=== PATIENT | female | born 1990 | race African-American/Black ===

== ENCOUNTER 2018-07-21 13:22 | Emergency (ER) | payer OTHER | END 2018-07-21 15:53 | disposition home or self-care (01) | LOC: JER 13:22 → JERFT 15:53 ==

== ENCOUNTER 2020-05-15 10:05 | Emergency (ER) | payer OTHER ==
[2020-05-15 10:13] VITALS: BMI 33.5
[2020-05-15] MEDS ORDERED: MAG HYDROX/AL HYDROX/SIMETH 30 ML UNIT-DOSE CUP PO ONE (10:51)
[2020-05-15] MEDS ORDERED: ONDANSETRON *ODT* 4 MG TABLET SL ONE (10:52)
[2020-05-15] MEDS ORDERED: FAMOTIDINE 10 MG TABLET PO ONE (10:52)
[2020-05-15] MEDS ORDERED: FAMOTIDINE 20 MG TABLET ONE (11:26)
[2020-05-15] MEDS ORDERED: ONDANSETRON *ODT* 4 MG TABLET ONE (11:27)
[2020-05-15] MEDS ORDERED: MAG HYDROX/AL HYDROX/SIMETH 30 ML UNIT-DOSE CUP ONE (11:27)
[2020-05-15 12:43] LABS: EPI CELLS 35 /uL (0-25.1); HYALINE CASTS 8 /uL (0-3.1); PH,URINE 5.5 (5.0-8.0); URINE APPEARANCE CLOUDY; URINE BACTERIA 1495 /uL (0-1359); URINE BILIRUBIN NEGATIVE (NEGATIVE); URINE COLOR YELLOW; URINE GLUCOSE (UA) NEGATIVE (NEGATIVE); URINE KETONE 4+ (NEGATIVE); URINE LEUK ESTERASE NEGATIVE (NEGATIVE); URINE NITRITE NEGATIVE (NEGATIVE); URINE PROTEIN 1+ (NEGATIVE)
[2020-05-15 13:28] LABS: URINE RBC 39 /uL (0-23.9); URINE WBC 65 /uL (0-25.8)
[2020-05-15] MEDS ORDERED: PANTOPRAZOLE SOD 40 MG SUSPENSION PACKET PO ONE (13:28)
[2020-05-15] MEDS ORDERED: PANTOPRAZOLE 40 MG TABLET PO ONE (13:39)
[2020-05-15] MEDS ORDERED: PANTOPRAZOLE 40 MG TABLET ONE (13:42)
[2020-05-15 14:02] VITALS: BP 143/83; PULSE 77; TEMP 97.9
== END 2020-05-15 14:03 | disposition home or self-care (01) ==
LOC: JER 10:05
DX: K29.00 Acute gastritis without bleeding (principal)
CPT/HCPCS: 36415; 81003; 82962; 84702; 87086; 99283-25; Q0162

== ENCOUNTER 2021-06-04 11:11 | Day surgery (SDC) | payer OTHER ==
[2021-06-04] MEDS ORDERED: FERRIC CARBOXYMALTOSE 750 MG in SODIUM CHLORIDE 250 ML IVPB ONE (12:15)
[2021-06-04 13:32] VITALS: BP 127/82; PULSE 60; TEMP 98.9
== END 2021-06-04 13:35 | disposition home or self-care (01) ==
LOC: FINFUSION 11:11 → FM/S 11:12 → FINFUSION 13:35
PROVIDERS: ATTEND Family Medicine
PROC: 3E033GC Introduction of Other Therapeutic Substance into Peripheral Vein, Percutaneous Approach (ICD-10-PCS; principal; 2021-06-04)
DX: D50.9 Iron deficiency anemia, unspecified (principal)
CPT/HCPCS: 81025; 96365; J1439

== ENCOUNTER 2021-06-06 10:00 | Emergency (ER) | payer OTHER ==
[2021-06-06 10:09] VITALS: BP 128/89; PULSE 80; TEMP 97.9; BMI 36.2
== END 2021-06-06 11:24 | disposition home or self-care (01) ==
LOC: JERFT 10:00
DX: M25.561 Pain in right knee (principal)
CPT/HCPCS: 73562-TC-RT-FY; 99283-25

== ENCOUNTER 2021-06-12 11:16 | Day surgery (SDC) | payer OTHER ==
[2021-06-12] MEDS ORDERED: FERRIC CARBOXYMALTOSE 750 MG in SODIUM CHLORIDE 250 ML IVPB ONE (12:00)
[2021-06-12 13:21] VITALS: BP 125/83; PULSE 63; TEMP 98.1
== END 2021-06-12 13:22 | disposition home or self-care (01) ==
LOC: FINFUSION 11:16 → FM/S 11:17 → FINFUSION 13:22
PROVIDERS: ATTEND Family Medicine
PROC: 3E033GC Introduction of Other Therapeutic Substance into Peripheral Vein, Percutaneous Approach (ICD-10-PCS; principal; 2021-06-12)
DX: D50.9 Iron deficiency anemia, unspecified (principal)
CPT/HCPCS: 81025; 96365; J1439

== ENCOUNTER 2021-06-20 14:14 | Emergency (ER) | payer OTHER ==
[2021-06-20 14:35] VITALS: BP 127/84; PULSE 75; TEMP 98.1; BMI 35.1
[2021-06-20 16:24] LABS: HCG,QUALITATIVE URINE Negative
[2021-06-20 16:39] LABS: EPI CELLS 16 /uL (0-25.1); HYALINE CASTS 28 /uL (0-3.1); PH,URINE 5.5 (5.0-8.0); URINE APPEARANCE CLOUDY; URINE BACTERIA 415 /uL (0-1359); URINE BILIRUBIN NEGATIVE (NEGATIVE); URINE COLOR YELLOW; URINE GLUCOSE (UA) NEGATIVE (NEGATIVE); URINE KETONE TRACE (NEGATIVE); URINE LEUK ESTERASE 2+ (NEGATIVE); URINE NITRITE NEGATIVE (NEGATIVE); URINE PROTEIN 1+ (NEGATIVE); URINE RBC 449 /uL (0-23.9); URINE UROBILINOGEN 0.2 mg/dL (0.2-1.0); URINE WBC 930 /uL (0-25.8)
== END 2021-06-20 17:15 | disposition home or self-care (01) ==
LOC: JERFT 14:14
DX: N30.01 Acute cystitis with hematuria (principal)
CPT/HCPCS: 81003; 84703; 87086; 87186; 99283-25

== ENCOUNTER 2022-08-06 18:45 | Emergency (ER) | payer OTHER ==
[2022-08-06 18:53] VITALS: BP 147/93; PULSE 88; RESP 18; TEMP 98.4; BMI 38.9
[2022-08-06 20:12] LABS: BASO % 0.3 % (0-2.0); EOS % 0.4 % (0-4.5); HEMATOCRIT 45.2 % (32.4-45.2); HEMOGLOBIN 14.8 GM/dL (10.7-15.3); LYMPH % 21.2 % (8-40); MCH 28.3 pg (25.7-33.7); MCHC 32.8 g/dl (32.0-36.0); MEAN CELL VOLUME 86.2 fl (80-96); MEAN PLT VOLUME 9.7 fl (7.5-11.1); MONO % 6.9 % (3.8-10.2); NEUT % 71.2 % (42.8-82.8); PLATELET COUNT 296 10^3/uL (134-434); RBC 5.24 M/mm3 (3.60-5.2); RDW 13.2 % (11.6-15.6); WHITE BLOOD COUNT 9.3 K/mm3 (4.0-10.0)
[2022-08-06] MEDS ORDERED: METOCLOPRAMIDE HCL INJECTION 10 MG/2 ML VIAL IVPB ONE (20:13)
[2022-08-06] MEDS ORDERED: ACETAMINOPHEN 1000 MG/100 ML BAG IVPB ONE (20:14)
[2022-08-06] MEDS ORDERED: SODIUM CHLORIDE 0.9% 500 ML INFUS.BAG IV ONE (20:14)
[2022-08-06 20:21] LABS: POTASSIUM 3.9 mmol/L (3.5-5.1)
[2022-08-06 20:23] LABS: ALBUMIN 3.8 g/dl (3.4-5.0); BLOOD UREA NITROGEN 8.2 mg/dL (7-18)
[2022-08-06 20:26] LABS: CREATININE 0.8 mg/dL (0.55-1.3)
[2022-08-06 20:28] LABS: BILIRUBIN,TOTAL 0.5 mg/dL (0.2-1); TOT PROT 8.2 g/dl (6.4-8.2)
[2022-08-06] MEDS ORDERED: ACETAMINOPHEN INJECTION 100 ML IVPB ONE ×2 (20:28→20:37)
[2022-08-06] MEDS ORDERED: METOCLOPRAMIDE HCL INJECTION 10 MG/2 ML VIAL ONE (20:36)
[2022-08-06 22:43] LABS: EPI CELLS 23 /uL (0-25.1); HYALINE CASTS 4 /uL (0-3.1); PH,URINE 5.5 (5.0-8.0); URINE APPEARANCE CLEAR; URINE BACTERIA 581 /uL (0-1359); URINE BILIRUBIN NEGATIVE (NEGATIVE); URINE COLOR YELLOW; URINE GLUCOSE (UA) NEGATIVE (NEGATIVE); URINE KETONE 4+ (NEGATIVE); URINE LEUK ESTERASE NEGATIVE (NEGATIVE); URINE NITRITE NEGATIVE (NEGATIVE); URINE PROTEIN TRACE (NEGATIVE); URINE RBC 62 /uL (0-23.9); URINE WBC 45 /uL (0-25.8)
== END 2022-08-06 23:10 | disposition home or self-care (01) ==
LOC: JER 18:45
PROC: 3E033NZ Introduction of Analgesics, Hypnotics, Sedatives into Peripheral Vein, Percutaneous Approach (ICD-10-PCS; principal; 2022-08-06)
PROC: 3E033GC Introduction of Other Therapeutic Substance into Peripheral Vein, Percutaneous Approach (ICD-10-PCS; 2022-08-06)
PROC: 3E033GC Introduction of Other Therapeutic Substance into Peripheral Vein, Percutaneous Approach (ICD-10-PCS; 2022-08-06)
DX: R06.02 Shortness of breath (principal); R42 Dizziness and giddiness; R20.2 Paresthesia of skin; R51.9 Headache, unspecified; R63.0 Anorexia; R06.00 Dyspnea, unspecified
CPT/HCPCS: 36415; 70450-TC; 72125-TC; 80053; 81003; 84703; 85025; 87086; 93005; 93010; 99285-25